=== PATIENT | female | born 1960 ===

== ENCOUNTER 2016-04-29 13:01 | Outpatient (CLI) | payer BC ==
--- NOTE | 2016-04-29 15:21 | Mammography Report ---
BILATERAL DIGITAL DIAGNOSTIC MAMMOGRAM with CAD and BILATERAL BREAST ULTRASOUND: 04/29/16 13:01:00 CLINICAL: Status post bilateral mastectomy with left TRAM and implant reconstruction and right implant. Bilateral pain. COMPARISON:None. FINDINGS: Normal appearance of the left TRAM and implant and normal right implant.No mass, architectural distortion or suspicious calcifications. Ultrasound of of both breasts (including all four quadrants and the retroareolar area) was performed and demonstrated normal fatty structures and implants. No mass, cyst or shadowing. IMPRESSION: No mammographic evidence of malignancy.Negative bilateral ultrasound with no explanation for bilateral pain. BI-RADS CATEGORY: 2 - - Benign RECOMMENDATION: Clinical followup. ACR BI-RADS MAMMOGRAPHIC CODES: 0 = Needs additional imaging evaluation; 1 = Negative; 2 = Benign; 3 = Probably benign; 4 = Suspicious; 5 = Malignant; 6 = Known biopsy-proven malignancy COMMENT: 1. Dense breast tissue, i.e., adenosis, fibrocystic changes, etc., may obscure an underlying neoplasm. 2. Approximately 10% of cancers are not detected with mammography. 3. A negative mammography report should not delay biopsy if a clinically suspicious mass is present. COMMENT: Patient follow-up letters are generated by our [facility] application.
== END 2016-04-29 13:02 | disposition home or self-care (01) ==
LOC: SPVWC 13:01
PROVIDERS: ATTEND Internal Medicine Hematology & Oncology
DX: C50.912 Malignant neoplasm of unspecified site of left female breast (principal); T85.848A Pain due to other internal prosthetic devices, implants and grafts, initial encounter; Z90.13 Acquired absence of bilateral breasts and nipples
CPT/HCPCS: 76641; G0204; 77066

== ENCOUNTER 2017-01-20 12:16 | Outpatient (CLI) | payer BC ==
--- NOTE | 2017-01-22 10:50 | Magnetic Resonance Report ---
BILATERAL BREAST MRI WITHOUT AND WITH CONTRAST: 01/20/17 CLINICAL: History of left breast cancer status post bilateral mastectomy with left TRAM and implant reconstruction and right implant augmentation. COMPARISON: 04/29/16 bilateral mammogram and bilateral breast ultrasound. TECHNIQUE: Axial 1.0-mm T1 without, axial high resolution 2.0-mm T2, axial STIR and axial and sagittal STIR with silicon excitation water saturation, sagittal T2 and axial 1.0-mm dynamic Vibrant high-resolution postcontrast T1 fat saturation sequences on a 1.5 Samantha magnet. The examination was performed with an 8 channel dedicated [place] breast coil. Post processing with CAD and subtraction was performed on an [employer] workstation. 20.0cc of Multihance was injected without incident for the contrast portion of the exam. Consent was obtained prior to the administration of the contrast. FINDINGS: Right: Intact silicon implant. No mass or suspicious enhancement. No suspicious lymph nodes. Left: Intact silicon implant. No suspicious mass or suspicious enhancement. Several small oval masses with central fat signal. One measures 7 mm and is located adjacent to the implant at 6 o'clock. Three are located more superficial at 5 o'clock to 7 o'clock and the largest at 6 o'clock measuring 11 mm. These fatty lesions demonstrate mild peripheral enhancement and are consistent with benign oil cysts. No suspicious lymph nodes. IMPRESSION: 1. Benign fat necrosis of the left TRAM flap with several small benign oil cysts. The more superficial ones may be palpable. 2. No suspicious finding of either breast. 3. Recommend clinical followup and consider routine mammographic screening. BIRADS: 2 - - Benign
== END 2017-01-20 12:17 | disposition home or self-care (01) ==
LOC: SPVIMAG 12:16
PROVIDERS: ATTEND Internal Medicine Hematology & Oncology
DX: N64.1 Fat necrosis of breast (principal); N60.02 Solitary cyst of left breast; N64.89 Other specified disorders of breast; N63.10 Unspecified lump in the right breast, unspecified quadrant; Z85.3 Personal history of malignant neoplasm of breast; Z90.13 Acquired absence of bilateral breasts and nipples; Z98.82 Breast implant status
CPT/HCPCS: 0159T; A9577; C8908; 77059